=== PATIENT | female | born 1995 | race Caucasian/White ===

== ENCOUNTER 2021-02-13 05:05 | Emergency (ER) | payer MEDICAID, OTHER ==
[~2021-02-13] VITALS: Ht 165.1 cm; Wt 81.8 kg
[2021-02-13 05:26] VITALS: BP 117/74
[2021-02-13] MEDS ORDERED: ZYPR1TAB2 PO (05:53)
[2021-02-13] MEDS ORDERED: BCP PO (17:43)
== END 2021-02-13 09:23 | disposition home or self-care (01) ==
LOC: M ED 05:05
DX: Z04.6 Encounter for general psychiatric examination, requested by authority (principal); T76.11XA Adult physical abuse, suspected, initial encounter

== ENCOUNTER 2021-02-13 12:23 | Inpatient (IN) | payer MEDICAID, OTHER, SELFPAY ==
[~2021-02-13] VITALS: Ht 167.6 cm; Wt 77.0 kg
[~2021-02-13 12:23] MED LIST: ZYPR1TAB2 PO
[2021-02-13] MEDS ORDERED: OLANZapine ORAL DISINTEGRATING TAB 5MG PO ONE (12:35)
[2021-02-13 14:29] LABS: HEMATOCRIT 38.7 % (36.0-47.0); HEMOGLOBIN 12.9 g/dl (12.0-15.5); MEAN CORPUSCULAR HEMOGLOBIN 29.2 pg (27.0-33.0); MEAN CORPUSCULAR HGB CONC 33.3 g/dl (32.0-36.5); MEAN CORPUSCULAR VOLUME 87.6 fl (80.0-96.0); PLATELET COUNT, AUTOMATED 264 10^3/uL (150-450); RED BLOOD COUNT 4.42 10^6/uL (4.00-5.40); WHITE BLOOD COUNT 10.1 10^3/uL (4.0-10.0)
[2021-02-13 14:56] LABS: AMPHETAMINES LEVEL URINE NEGATIVE (NEGATIVE); BARBITURATES URINE NEGATIVE (NEGATIVE); BENZODIAZEPINES URINE NEGATIVE (NEGATIVE); CANNABINOIDS URINE NEGATIVE (NEGATIVE); COCAINE METABOLITE URINE NEGATIVE (NEGATIVE); METHADONE URINE NEGATIVE (NEGATIVE); OPIATES URINE NEGATIVE (NEGATIVE); PHENCYCLIDINE URINE NEGATIVE (NEGATIVE)
[2021-02-13 15:07] LABS: ACETAMINOPHEN LEVEL < 2.0 UG/ML (10.0-30.0); ALBUMIN 4.1 GM/DL (3.2-5.2); ALT/SGPT 21 U/L (12-78); BILIRUBIN,DIRECT 0.3 MG/DL (0.0-0.2); BLOOD UREA NITROGEN 15 MG/DL (7-18); CALCIUM LEVEL 9.5 MG/DL (8.5-10.1); CARBON DIOXIDE LEVEL 21 MEQ/L (21-32); CHLORIDE LEVEL 107 MEQ/L (98-107); CREATININE FOR GFR 0.89 MG/DL (0.55-1.30); ETHYL ALCOHOL (ETHANOL) < 0.003 % (0.000-0.010); GLOMERULAR FILTRATION RATE > 60.0 (>60); GLUCOSE, FASTING 76 MG/DL (70-100); POTASSIUM SERUM 3.9 MEQ/L (3.5-5.1); SALICYLATE LEVEL < 1.7 MG/DL (5.0-30.0); SODIUM LEVEL 138 MEQ/L (136-145); THYROID STIMULATING HORMONE 0.793 uIU/ML (0.358-3.740); TOTAL PROTEIN 7.6 GM/DL (6.4-8.2)
[2021-02-13] MEDS ORDERED: LORazepam 1 MG TAB PO ONE (15:30)
[2021-02-13] MEDS ORDERED: BCP PO (17:43)
[2021-02-13 17:48] LABS: RSV AMPLIFICATION NEGATIVE (NEGATIVE)
[2021-02-13 19:19] LABS: HCG, SERUM QUALITATIVE NEGATIVE (NEGATIVE)
[2021-02-13] MEDS ORDERED: OLANZapine 5 MG TAB PO ONE (19:55)
[2021-02-14] MEDS ORDERED: MOM 30ML SUSPENSION UDC PO PRN (01:00)
[2021-02-14] MEDS ORDERED: traZODone 50 MG TAB PO PRN (01:00)
[2021-02-14] MEDS ORDERED: ACETAMINOPHEN TAB 650MG DOSE (2X325MG) PO PRN (01:00)
[2021-02-14] MEDS ORDERED: MAALOX 30 ML SUSP *UDC PO PRN (01:00)
[2021-02-14] MEDS ORDERED: LORazepam 1 MG TAB PO PRN (01:00)
[2021-02-14 02:30] VITALS: BP 109/58
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
[2021-02-14] MEDS: OLANZapine 5 MG TAB PO SCH ×2 (14:00→21:21)
[2021-02-14] MEDS ORDERED: LITHIUM CARBONATE 150 MG CAP PO ONE (14:45)
--- NOTE | 2021-02-14 16:49 | HPEPDOC ---
General Date of Admission February 14, 2021 at 00:57 Date of Service: February 14, 2021 Chief Complaint The patient is a 25-year-old female admitted with a reason for visit of Bipolar Do. Source: Patient History of Present Illness 25 year old female [facility]. She is being examined here today for medical history and physical. She does not offer any complaints today. She was tested positive for COVID on 02/13/21. She is very soft spoken and takes a long time to form answers. Does not have any cough or fever , no SOB , appetite ok, no other symptoms of viral illness. Home Medications Scheduled Olanzapine (Zyprexa) 7.5 Mg Tablet, 7.5 MG PO QPM, (Reported) Miscellaneous Medications [Bcp] , 1 TAB PO, (Reported) Allergies Coded Allergies: No Known Allergies (Unverified , 02/13/21) Past Medical History Medical History Asperger's syndrome Bipolar disorder Surgical History wisdom teeth removal Family History 1 sister with Bipolar disorder 1 sister has leukemia Social History * Smoker: current smoker Alcohol: rarely Drugs: denies A-FIB/CHADSVASC A-FIB History Current/History of A-Fib/PAF?: No Review of Systems Constitutional: Denies: Chills, Fever, Night Sweats Eyes: Denies: Pain, Vision change ENT: Denies: Head Aches, Ear Pain, Dysphagia Skin: Denies: Rash, Lesions, Breakdown Pulmonary: Denies: Dyspnea, Cough Cardiovascular: Denies: Chest Pain, Palpitations, Orthopnea, Paroxysmal Noc. Dyspnea, Lt Headedness Gastrointestinal: Denies: Nausea, Vomiting, Abdominal Pain, Diarrhea Genitourinary: Denies: Dysuria, Frequency, Incontinence, Retention Physical Examination General Exam: Positive: Alert, Cooperative, No Acute Distress Eye Exam: Positive: PERRLA, Conjunctiva & lids normal, EOMI; Negative: Sclera icteric ENT Exam: Positive: Atraumatic, Mucous membr. moist/pink, Pharynx Normal Neck Exam: Positive: Supple; Negative: JVD, thyromegaly Chest Exam: Positive: Clear to auscultation, Normal air movement Heart Exam: Positive: Rate Normal, Regular Rhythm, Normal S1, Normal S2; Negative: Murmurs, Rubs Abdomen Exam: Positive: Normal bowel sounds, Soft; Negative: Tenderness, Hepatospenomegaly Vital Signs Vital Signs Date Time Temp Pulse Resp B/P (MAP) Pulse Ox O2 Delivery O2 Flow Rate FiO2 02/14/21 02:30 90 20 109/58 (75) 98 Room Air 02/14/21 00:18 97.7 Laboratory Data Labs 24H Laboratory Tests 2 02/13/21 16:44: Coronavirus (COVID-19)(PCR) POSITIVEA, Influenza Type A (RT-PCR) NEGATIVE, Influenza Type B (RT-PCR) NEGATIVE, Respiratory Syncytial Virus (PCR) NEGATIVE Assessment/Plan 25 year old female [facility]. She is being examined here today for medical history and physical. She tested positive for COVID on 02/13/21 Asymptomatic COVID infection Denies being exposed to anyone known to have COVID. will watch for appearance of any symptoms Bipolar disorder as per psychiatry. Asperger's syndrome Plan / VTE VTE Prophylaxis Ordered?: No LONNIE SIEGEL MD February 14, 2021 16:49
[2021-02-14 17:55] VITALS: BP 122/69
[2021-02-15 06:47] VITALS: BP 109/56
[2021-02-15 08:47] LABS: CHOLESTEROL RISK RATIO 2.575 (<5)
[2021-02-15] MEDS: LITHIUM CARBONATE 150 MG CAP PO SCH ×2 (09:38→22:02)
[2021-02-15] MEDS: OLANZapine 5 MG TAB PO SCH ×2 (09:38→22:02)
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
[2021-02-15 18:49] VITALS: BP 119/59
[2021-02-16] MEDS: OLANZapine 5 MG TAB PO SCH ×2 (09:11→19:29)
[2021-02-16] MEDS: LITHIUM CARBONATE 150 MG CAP PO SCH ×2 (09:11→19:29)
[2021-02-16] MEDS ORDERED: LITH150C PO (11:48)
[2021-02-16] MEDS ORDERED: ATIV1TAB7 PO (11:48)
[2021-02-16] MEDS ORDERED: OLAN5TAB PO (11:48)
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
[2021-02-16 16:35] VITALS: BP 114/58
[2021-02-17 06:01] VITALS: BP 115/70
[2021-02-17] MEDS: OLANZapine 5 MG TAB PO SCH (09:27)
[2021-02-17] MEDS: LITHIUM CARBONATE 150 MG CAP PO SCH (09:27)
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
== END 2021-02-17 12:09 | disposition home or self-care (01) | DRG 753 ==
LOC: M ED 12:23 → M ED INP 02-14 00:57 → M PSY 02-14 02:30
PROVIDERS: ADMIT Psychiatry & Neurology Psychiatry; ATTEND Psychiatry & Neurology Psychiatry
DX: F31.9 Bipolar disorder, unspecified (principal); F84.5 Asperger's syndrome; Z62.810 Personal history of physical and sexual abuse in childhood; Z20.822 Contact with and (suspected) exposure to COVID-19; Z79.899 Other long term (current) drug therapy; F17.210 Nicotine dependence, cigarettes, uncomplicated; U07.1 COVID-19